=== PATIENT | female | born 1980 | race Two or more races ===

== ENCOUNTER → 2024-11-22 | Outpatient (CLI) | payer MEDICAID, SELFPAY ==
--- NOTE | 2024-11-22 11:00 | XR_ITS ---
Examination: Breast ultrasound, unilateral, left Date and time of exam: November 14, 2024 1123 hours INDICATIONS: 9:00 nodule left breast 7 mm on left breast sonogram May 06, 2024 Technique: Real-time talbert scale ultrasonographic imaging performed left breast including all 4 quadrants as well as nipple retroareolar and axillary region. Findings: 9:00 nodule 8 x 10 mm micro lobular margins IMPRESSION: BI-RADS Category 4: Suspicious for malignancy Suspicious mass 9:00 position left breast, biopsy is needed to exclude breast carcinoma This mass is amenable to ultrasound-guided breast biopsy for diagnosis
== END | disposition home or self-care (01) ==
LOC: CDIM 10:55
PROVIDERS: PCP Family Medicine; Referring Provider Specialist; Visit Provider Specialist
DX: R92.8 Other abnormal and inconclusive findings on diagnostic imaging of breast (principal); N63.25 Unspecified lump in the left breast, overlapping quadrants
CPT/HCPCS: 76641

== ENCOUNTER → 2025-06-06 | Outpatient (CLI) | payer MEDICAID, SELFPAY ==
--- NOTE | 2025-06-06 16:49 | XR_ITS ---
Examination: Foot, right, 3 views Technique: AP, oblique, lateral views foot, 3 views Date and time of exam: June 06, 2025, 1652 hours INDICATIONS: First digit pain 3 months FINDINGS: Moderate hallux valgus bunion deformity Moderate narrowing first metatarsophalangeal joint No fracture or dislocation IMPRESSION: Moderate hallux valgus bunion deformity with moderate narrowing first metatarsophalangeal joint
== END | disposition home or self-care (01) ==
PROVIDERS: PCP Physician Assistant; Referring Provider Otolaryngology; Visit Provider Otolaryngology
DX: M25.871 Other specified joint disorders, right ankle and foot (principal); M20.11 Hallux valgus (acquired), right foot; M21.611 Bunion of right foot
CPT/HCPCS: 73630